=== PATIENT | female | born 1990 | race Caucasian/White ===

== ENCOUNTER 2018-10-05 21:31 | Emergency (ER) | payer MEDICAID ==
[2018-10-05] MEDS: ACETAMINOPHEN 500 MG TAB PO (23:27)
[2018-10-05] MEDS: KETOROLAC 60 MG INJ IM (23:28)
[2018-10-05] MEDS: LIDOCAINE 1% (MPF) 5 ML VIAL IM (23:28)
[2018-10-05] MEDS: CEFTRIAXONE 1 GM INJ IM (23:28)
[2018-10-06] MEDS: HYDROCODONE/APAP (5/325) TAB PO (01:03)
== END 2018-10-06 01:06 | disposition home or self-care (01) ==
LOC: FTE 10-06 01:06
DX: N61.0 Mastitis without abscess (principal)
CPT/HCPCS: 81025; 96372; 99284-25